=== PATIENT | male | born 1975 | race Caucasian/White ===

== ENCOUNTER 2023-06-19 15:45 | Emergency (ER) | payer BC ==
[2023-06-19] MEDS: Sodium Chloride 0.9% 1,000 ML IV ONE (16:30)
[2023-06-19] MEDS: Ondansetron 4 MG/2 ML SDV IVPUSH ONE (16:30)
[2023-06-19] MEDS: Morphine 4 MG/ML Syringe IVPUSH ONE (16:30)
[2023-06-19] MEDS: Propofol 200 MG/20 ML SDV IVPUSH ONE (17:49)
[2023-06-19] MEDS: Ketamine 500 mg/10 ML MDV IV ONE (17:49)
[2023-06-19] MEDS: Acetaminophen/oxyCODONE 325-5 MG Tab PO ONE (18:29)
== END 2023-06-19 20:37 | disposition home or self-care (01) ==
LOC: MW.ED 15:45
DX: S52.121A Displaced fracture of head of right radius, initial encounter for closed fracture (principal); Z79.899 Other long term (current) drug therapy; Z79.82 Long term (current) use of aspirin; Z79.01 Long term (current) use of anticoagulants; Z75.8 Other problems related to medical facilities and other health care; Z95.1 Presence of aortocoronary bypass graft; V86.56XA Driver of dirt bike or motor/cross bike injured in nontraffic accident, initial encounter; Y93.55 Activity, bike riding
CPT/HCPCS: 24600; 73080; 96374; 96375; 99283; A9270; J2270; J2405; J2704; J3490; J7030